=== PATIENT | male | born 1980 | race Native Hawaiian/Other Pacific Islander ===

== ENCOUNTER 2017-10-29 14:41 | Emergency (ER) | payer SELFPAY ==
[~2017-10-29] VITALS: Ht 177.8 cm; Wt 72.6 kg
[~2017-10-29 14:41] MED LIST: ALPR1TAB7 PO; ZOLP10TA6 PO
--- NOTE | 2017-10-29 14:55 | NUR ---
RECIEVED PT TO ED BED 02, PT IS C/O LEFT ARM AND LEG "NUMBNESS" X2-3 DAYS, AT SAME TIME HE STOPPED XANAX. PT ADMITS TO SMOKING CRYSTAL METH. PT APPEARS VERY ANXIOUS. PURPOSELY SHAKING HIS BOTH HANDS. NAD. RR EVEN AND UNLABORED. PT PLACED ON CONT CARDIAC AND POX MONITORING. ALL NEEDS ARE ATTENDED, WILL CONT TO MONITOR
[2017-10-29] MEDS ORDERED: LORAZEPAM INJ 2 MG/ML VIAL ONE (14:58)
[2017-10-29] MEDS ORDERED: IV NS 0.9% 1,000 ML BAG IV ONE (15:00)
[2017-10-29] MEDS ORDERED: LORAZEPAM INJ 2 MG/ML VIAL IV ONE (15:00)
[2017-10-29 15:09] LABS: BASOPHILS # (AUTO) 0.2 /CMM (0.0-0.2); BASOPHILS % (AUTO) 1.9 % (0.0-2.0); HEMATOCRIT 43 % (39-51); HEMOGLOBIN 14.4 g/dL (13.5-17.5); LYMPHOCYTES # (AUTO) 2.3 /CMM (0.8-4.8); LYMPHOCYTES % (AUTO) 28.1 % (20.0-44.0); MEAN CORPUSCULAR HEMOGLOBIN 31 PG (26.0-33.0); MEAN CORPUSCULAR HGB CONC 34 g/dl (31.0-36.0); MEAN CORPUSCULAR VOLUME 92 fL (80-96); MONOCYTES # (AUTO) 0.4 /CMM (0.1-1.30); NEUTROPHILS # (AUTO) 5.1 /CMM (1.8-8.9); PLATELET COUNT (AUTO) 277 /CMM (150-450); RDW COEFFICIENT OF VARIATION 12.3 (11.5-15.0); RED BLOOD CELL COUNT(AUTO) 4.65 MIL/uL (4.5-6.0); WHITE BLOOD COUNT (AUTO) 8.1 K/uL (4.3-11.0)
[2017-10-29 15:19] LABS: CALCIUM, SERUM 9.8 mg/dL (8.5-10.1); CARBON DIOXIDE 25 mmol/L (21-32); CHLORIDE 101 mmol/L (98-107); GLUCOSE 108 mg/dL (74-106); SODIUM SERUM 137 mmol/L (136-145); UREA NITROGEN, BLOOD 8 mg/dL (7-18)
[2017-10-29 15:25] LABS: ACETAMINOPHEN 2 ug/ml (10-30); ALANINE AMINOTRANSFERASE 20 U/L (12-78); ALBUMIN 4.7 g/dL (3.4-5.0); ALCOHOL, BLOOD < 3 mg/dL (0-0); ALKALINE PHOSPHATASE 62 U/L (46-116); ASPARTATE AMINOTRANSFERASE 14 U/L (15-37); BILIRUBIN,DIRECT 0.1 mg/dL (0.0-0.2); BILIRUBIN,TOTAL 0.6 mg/dL (0.2-1.0); SALICYLATE 0.8 mg/dL (2.8-20.0); TOTAL PROTEIN, SERUM 7.9 g/dL (6.4-8.2)
[2017-10-29 15:50] VITALS: BP 137/80
--- NOTE | 2017-10-29 15:51 | NUR ---
Patient discharged to home in stable condition. Written and verbal after care instructions given. Patient verbalizes understanding of instruction.IV removed. Catheter intact and site benign. Pressure and 4x4 applied to site. No bleeding noted.
== END 2017-10-29 15:54 | disposition home or self-care (01) ==
LOC: ER 14:44
DX: F13.239 Sedative, hypnotic or anxiolytic dependence with withdrawal, unspecified (principal); F17.200 Nicotine dependence, unspecified, uncomplicated; G40.909 Epilepsy, unspecified, not intractable, without status epilepticus
CPT/HCPCS: 36415; 70450-TC; 80048-TC; 80076-TC; 85025-TC; A4606; G0480; J2060; J7030; Z7610